=== PATIENT | female | born 1935 | race Caucasian/White ===

== ENCOUNTER 2016-06-18 07:03 | Outpatient (CLI) | payer MEDICARE, OTHER ==
[2013-05-29 05:09] VITALS: BP 153/90
[2016-06-18 08:37] LABS: BASOPHILS % 0.4 (0.0-1.5); EOSINOPHILS % 3.8 % (0.0-6.8); LYMPHOCYTES # 1.6 # k/uL (0.6-4.0); MEAN CORPUSCULAR HEMOGLOBIN 29.9 pg (28.0-34.0); MONOCYTES # 0.4 # k/uL (0.0-0.9); NEUTROPHILS # 3.8 # k/uL (1.4-7.7)
[2016-06-18 08:42] LABS: eGFR (African) > 60; eGFR (Non-African) > 60
[2016-06-18 08:57] LABS: APPEARANCE,URINE Clear (CLEAR); COLOR,URINE Yellow (YELLOW); OCCULT BLOOD,URINE Negative (NEGATIVE)
== END 2016-06-18 07:04 ==
LOC: LAB 07:03
PROVIDERS: ATTEND Family Medicine
DX: I10 Essential (primary) hypertension (principal); E78.5 Hyperlipidemia, unspecified; M12.9 Arthropathy, unspecified; M85.80 Other specified disorders of bone density and structure, unspecified site
CPT/HCPCS: 36415; 80053; 80061; 81002; 82306; 84443; 85025

== ENCOUNTER 2017-07-08 07:01 | Outpatient (CLI) | payer MEDICARE, OTHER ==
[2013-05-29 05:09] VITALS: BP 153/90
[2017-07-08 07:48] LABS: BASOPHILS % 0.8 (0.0-1.5); EOSINOPHILS % 4.3 % (0.0-6.8); MEAN CORPUSCULAR HEMOGLOBIN 28.9 pg (28.0-34.0); MEAN CORPUSCULAR VOLUME 88.8 fl (80.0-100.0); MONOCYTES % 4.2 % (0.0-11.0); NEUTROPHILS # 3.5 # k/uL (1.4-7.7)
[2017-07-08 08:33] LABS: eGFR (African) > 60; eGFR (Non-African) > 60
== END 2017-07-08 07:02 ==
LOC: LAB 07:01
PROVIDERS: ATTEND Family Medicine
DX: I10 Essential (primary) hypertension (principal); E78.5 Hyperlipidemia, unspecified
CPT/HCPCS: 36415; 80053; 80061; 82043; 82306; 83036; 84443; 85025

== ENCOUNTER 2018-01-13 09:33 | Outpatient (CLI) | payer MEDICARE, OTHER ==
[2013-05-29 05:09] VITALS: BP 153/90
== END 2018-01-13 09:35 ==
LOC: LAB 09:33
PROVIDERS: ATTEND Family Medicine
DX: R31.9 Hematuria, unspecified (principal)
CPT/HCPCS: 87086

== ENCOUNTER 2018-06-24 08:57 | Emergency (ER) | payer MEDICARE, OTHER ==
[2018-06-24 09:25] VITALS: BP 171/74
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
--- NOTE | 2018-06-24 10:28 | Diagnostic Imaging Report ---
ROBBY BEASLEY [facility] [address] [facility] [address] [address] Report Submission Date: Jun 24, 2018 10:20:19 AM DIMITRIOS Patient Study Name: ANDRES RAO Date: Jun 24, 2018 9:40:51 AM BUSINESS BROKER Modality Type: DX Gender: F Description: RT HIP 2 VIEW COMPETE : 06[birth year]/35 Institution: [facility] Physician: ROBBY BEASLEY Right hip two views with AP pelvis History: Pain after fall Findings: Right hip arthroplasty is observed in anatomic alignment without fracture, dislocation, or loosening. Diffuse osteopenia and a healed right iliac fracture are observed. Extremely advanced left hip osteoarthritis is present with remodeling of the acetabulum. Lower lumbar spondylosis and atherosclerotic calcifications are present. Impression: Degenerative, chronic traumatic, and postoperative changes without acute fracture. Electronically signed on Jun 24, 2018 10:20:19 AM DIMITRIOS by: Dread BAINS
--- NOTE | 2018-06-24 10:29 | Diagnostic Imaging Report ---
ROBBY BEASLEY [facility] [address] [facility] [address] [address] Report Submission Date: Jun 24, 2018 10:17:54 AM FISH HATCHERY SUPERVISOR Patient Study Name: ANDRES RAO Date: Jun 24, 2018 9:44:51 AM FISH HATCHERY SUPERVISOR Modality Type: DX Gender: F Description: L SPINE 2 OR 3 VIEWS : 06[birth year]24[birth year] Institution: [facility] Physician: ROBBY BEASLEY Lumbar spine three views History: Pain after fall Findings: Advanced L3-4 and L4-5 degenerative disc disease, grade 1 L4-5 spondylolisthesis, diffuse osteopenia, advanced atherosclerotic disease, and advanced left hip osteoarthritis are observed. There is no fracture. Electronically signed on Jun 24, 2018 10:17:54 AM FISH HATCHERY SUPERVISOR by: Dread BAINS
== END 2018-06-24 11:13 | disposition home or self-care (01) ==
LOC: ED 08:57
DX: S70.01XA Contusion of right hip, initial encounter (principal); W01.0XXA Fall on same level from slipping, tripping and stumbling without subsequent striking against object, initial encounter; Y93.01 Activity, walking, marching and hiking; Y92.009 Unspecified place in unspecified non-institutional (private) residence as the place of occurrence of the external cause
CPT/HCPCS: 72100; 73502; 99283; 99284

== ENCOUNTER 2018-07-21 07:03 | Outpatient (CLI) | payer MEDICARE, OTHER ==
[2018-07-21 07:27] LABS: MEAN CORPUSCULAR HEMOGLOBIN 28.6 pg (28.0-34.0)
[2018-07-21 07:28] LABS: BASOPHILS % 0.9 (0.0-1.5); EOSINOPHILS % 4.6 % (0.0-6.8); MONOCYTES % 3.8 % (0.0-11.0); NEUTROPHILS # 3.6 # k/uL (1.4-7.7)
[2018-07-21 07:42] LABS: eGFR (Non-African) > 60
== END 2018-07-21 07:10 ==
LOC: LAB 07:03
PROVIDERS: ATTEND Family Medicine
DX: E11.9 Type 2 diabetes mellitus without complications (principal); I10 Essential (primary) hypertension; E78.5 Hyperlipidemia, unspecified; M85.80 Other specified disorders of bone density and structure, unspecified site; Z13.29 Encounter for screening for other suspected endocrine disorder
CPT/HCPCS: 36415; 80053; 80061; 82043; 82306; 83036; 84443; 85025

== ENCOUNTER 2019-02-23 07:52 | Outpatient (CLI) | payer MEDICARE, OTHER ==
[2019-02-23 08:30] LABS: BASOPHILS % 0.5 % (0.0-1.5); NEUTROPHILS # 3.6 # k/uL (1.4-7.7)
[2019-02-23 08:32] LABS: APPEARANCE,URINE CLEAR (CLEAR); COLOR,URINE YELLOW (YELLOW); OCCULT BLOOD,URINE NEGATIVE (NEGATIVE); PH URINE 6.5 (5.0 - 8.0); UROBILINOGEN URINE 0.2 Eu (0.2-1.0)
[2019-02-23 09:20] LABS: eGFR (Non-African) > 60
[2019-02-23 09:21] LABS: HDL 34 mg/dL (>40)
== END 2019-02-23 07:54 ==
LOC: LAB 07:52
PROVIDERS: ATTEND Family Medicine
DX: E11.9 Type 2 diabetes mellitus without complications (principal); I10 Essential (primary) hypertension; E66.9 Obesity, unspecified
CPT/HCPCS: 36415; 80053; 80061; 81002; 82306; 84443; 85025; 87086